=== PATIENT | female | born 1970 | race Caucasian/White ===

== ENCOUNTER 2021-12-09 12:57 | Outpatient (CLI) | payer OTHER, SELFPAY ==
--- NOTE | 2021-12-09 13:40 | CRLHL7_ITS ---
For Patients: As a result of the Century Cures Act, medical imaging exams and procedure reports are released immediately into your electronic medical record. You may view this report before your referring provider. If you have questions, please contact your health care provider. BILATERAL SCREENING MAMMOGRAM WITH COMPUTER-AIDED DETECTION AND TOMOSYNTHESIS TECHNIQUE: CC, MLO and Implant displaced views were obtained. These mammographic images have been obtained using full-field digital technique. These mammographic images were interpreted with the benefit of computer-aided detection. Breast Tomosynthesis was used in this interpretation. COMPARISON FILM: 12/01/20, 08/14/19, 06/06/18. FINDINGS: There are scattered areas of fibroglandular density IMPRESSION: There is no radiographic evidence for malignancy. ASSESSMENT: BI-RADS Category 2: Benign RECOMMENDATION: Routine screening mammogram in 1 year. A lay language report of this examination will be provided to the patient. Nakita Mann M.D. Diagnostic/Breast Radiologist [email or web address] UNIQUE/Dictated by: Nakita Mann MD @ 12/10/2021 8:32:00 AM (Electronically Signed)
== END 2021-12-09 12:58 | disposition home or self-care (01) ==
LOC: MAMMO 12:58
PROVIDERS: PCP Family Medicine; Visit Provider Obstetrics & Gynecology
DX: Z12.31 Encounter for screening mammogram for malignant neoplasm of breast (principal)
CPT/HCPCS: 77063; 77067

== ENCOUNTER 2021-12-20 10:49 | Outpatient (CLI) | payer OTHER, SELFPAY | END 2021-12-20 10:50 | disposition home or self-care (01) | LOC: LKVREF 10:49 | PROVIDERS: PCP Family Medicine; Visit Provider Physician Assistant | DX: Z01.419 Encounter for gynecological examination (general) (routine) without abnormal findings (principal); N95.1 Menopausal and female climacteric states | CPT/HCPCS: 83001 ==

== ENCOUNTER 2022-06-16 14:20 | Outpatient (CLI) | payer OTHER, SELFPAY | END 2022-06-16 14:21 | disposition home or self-care (01) | PROVIDERS: PCP Family Medicine; Visit Provider Family Medicine | DX: E04.1 Nontoxic single thyroid nodule (principal); E78.5 Hyperlipidemia, unspecified; E66.9 Obesity, unspecified | CPT/HCPCS: 80053; 80061; 84443 ==

== ENCOUNTER 2022-08-16 13:47 | Outpatient (CLI) | payer OTHER, SELFPAY ==
--- NOTE | 2022-08-16 14:00 | CRLHL7_ITS ---
For Patients: As a result of the Century Cures Act, medical imaging exams and procedure reports are released immediately into your electronic medical record. You may view this report before your referring provider. If you have questions, please contact your health care provider. INDICATION: Follow-up nodule COMPARISON: 08/16/2021 TECHNIQUE: York scale and color Doppler images were acquired of the thyroid gland. FINDINGS: The thyroid gland demonstrates heterogeneous echogenicity and has a smooth outer contour. The right lobe measures 5.5 x 1.3 x 1.7 cm and the left lobe measures 5.4 x 1.1 x 1.3 cm in size. Near isoechoic nodule within the lower pole of the left thyroid lobe measuring 1.3 x 0.7 x 0.8 cm. The color Doppler images demonstrate normal vascularity. There is no evidence of cervical lymphadenopathy or parathyroid mass. IMPRESSION: 1.3 cm near isoechoic nodule lower pole left thyroid lobe appears morphologically similar in retrospect compared to the prior exam. Continued follow-up in 1 year is suggested. Dictated by Jackson Silva MD @ 08/16/2022 2:35:19 PM (Electronically Signed)
== END 2022-08-16 13:48 | disposition home or self-care (01) ==
LOC: US 13:48
PROVIDERS: PCP Family Medicine; Visit Provider Family Medicine
DX: E04.1 Nontoxic single thyroid nodule (principal)
CPT/HCPCS: 76536

== ENCOUNTER 2022-12-26 13:15 | Outpatient (CLI) | payer OTHER, SELFPAY | END 2022-12-26 13:16 | disposition home or self-care (01) | LOC: NFLDREF 13:15 | PROVIDERS: PCP Family Medicine; Visit Provider Physician Assistant | DX: Z01.419 Encounter for gynecological examination (general) (routine) without abnormal findings (principal); E78.5 Hyperlipidemia, unspecified | CPT/HCPCS: 80061 ==

== ENCOUNTER 2022-12-29 11:03 | Outpatient (CLI) | payer OTHER, SELFPAY | END 2022-12-29 11:04 | disposition home or self-care (01) | LOC: NFLDREF 01-02 03:07 | PROVIDERS: PCP Family Medicine; Referring Provider Family Medicine; Visit Provider Physician Assistant | DX: E78.5 Hyperlipidemia, unspecified (principal) | CPT/HCPCS: 80061 ==

== ENCOUNTER 2023-01-10 12:51 | Outpatient (CLI) | payer OTHER, SELFPAY ==
--- NOTE | 2023-01-10 13:00 | CRLHL7_ITS ---
For Patients: As a result of the Century Cures Act, medical imaging exams and procedure reports are released immediately into your electronic medical record. You may view this report before your referring provider. If you have questions, please contact your health care provider. BILATERAL SCREENING MAMMOGRAM WITH COMPUTER-AIDED DETECTION AND TOMOSYNTHESIS TECHNIQUE: CC and MLO views were obtained. These mammographic images have been obtained using full-field digital technique. These mammographic images were interpreted with the benefit of computer-aided detection. Breast Tomosynthesis was used in this interpretation. COMPARISON FILM: 12/09/21, 12/01/20, 08/14/19. FINDINGS: There are scattered areas of fibroglandular density IMPRESSION: There is no radiographic evidence for malignancy. ASSESSMENT: BI-RADS Category 2: Benign RECOMMENDATION: Routine screening mammogram in 1 year. A lay language report of this examination will be provided to the patient. Jackson Silva M.D. Diagnostic Radiologist [email or web address] UNIQUE/Dictated by: Jackson Silva MD @ 01/11/2023 12:25:00 PM (Electronically Signed)
== END 2023-01-10 12:52 | disposition home or self-care (01) ==
LOC: MAMMO 12:52
PROVIDERS: PCP Family Medicine; Visit Provider Physician Assistant
DX: Z12.31 Encounter for screening mammogram for malignant neoplasm of breast (principal)
CPT/HCPCS: 77063; 77067

== ENCOUNTER 2023-08-21 15:42 | Outpatient (CLI) | payer OTHER, SELFPAY ==
--- NOTE | 2023-08-21 16:00 | CRLHL7_ITS ---
For Patients: As a result of the Cures Act, medical imaging exams and procedure reports are released immediately into your electronic medical record. You may view this report before your referring provider. If you have questions, please contact your health care provider. INDICATION: Nontoxic single thyroid nodule. TECHNIQUE: Thyroid ultrasound with grayscale and color Doppler images. COMPARISON: 08/16/2022 thyroid ultrasound. FINDINGS: Right lobe: 5.6 x 1.3 x 1.8 cm. No nodules. Left lobe: 5.5 x 1.2 x 1.7 cm. Nodule 1: 1.3 cm hypoechoic solid wider than tall TR 4 nodule, unchanged. Isthmus: 3 mm. Thyroid parenchyma mildly heterogeneous. No local adenopathy. IMPRESSION: Stable 1.3 cm TR 4 left lobe nodule. ACR TI-RADS [email or web address] TR1: Benign No FNA TR2: Not Suspicious No FNA TR3: Mildly Suspicious FNA if greater than or equal to 2.5 cm Follow if greater than or equal to 1.5 cm TR4: Moderately Suspicious FNA if greater than or equal to 1.5 cm Follow if greater than or equal to 1 cm TR5: Highly Suspicious FNA if greater than or equal to 1 cm Follow if greater than or equal to 0.5 cm Dictated by Kai Stover MD @ 08/22/2023 3:42:12 PM (Electronically Signed)
== END 2023-08-21 15:43 | disposition home or self-care (01) ==
LOC: US 15:43
PROVIDERS: PCP Family Medicine; Visit Provider Family Medicine
DX: E04.1 Nontoxic single thyroid nodule (principal)
CPT/HCPCS: 76536

== ENCOUNTER 2024-01-15 14:31 | Outpatient (CLI) | payer OTHER, SELFPAY ==
--- NOTE | 2024-01-15 14:40 | CRLHL7_ITS ---
For Patients: As a result of the Cures Act, medical imaging exams and procedure reports are released immediately into your electronic medical record. You may view this report before your referring provider. If you have questions, please contact your health care provider. BILATERAL SCREENING MAMMOGRAM WITH COMPUTER-AIDED DETECTION AND TOMOSYNTHESIS TECHNIQUE: CC and MLO views were obtained. These mammographic images have been obtained using full-field digital technique. These mammographic images were interpreted with the benefit of computer-aided detection. Breast Tomosynthesis was used in this interpretation. COMPARISON FILM: 01/10/23, 12/09/21, 12/01/20. FINDINGS: There are scattered areas of fibroglandular density IMPRESSION: There is no radiographic evidence for malignancy. ASSESSMENT: BI-RADS Category 2: Benign RECOMMENDATION: Routine screening mammogram in 1 year. A lay language report of this examination will be provided to the patient. Jackson Silva M.D. Diagnostic Radiologist [email or web address] SANTI/colin / bM/Dictated by: Jackson Silva MD @ 01/19/2024 10:39:00 AM (Electronically Signed)
== END 2024-01-15 14:32 | disposition home or self-care (01) ==
LOC: MAMMO 14:32
PROVIDERS: PCP Family Medicine; Visit Provider Physician Assistant
DX: Z12.31 Encounter for screening mammogram for malignant neoplasm of breast (principal)
CPT/HCPCS: 77063; 77067

== ENCOUNTER 2024-06-11 08:01 | Outpatient (CLI) | payer OTHER, SELFPAY ==
--- NOTE | 2024-06-11 09:41 | P.ANES_ITS ---
Anesthesia Charges Start Date/Time Anesthesia Start Date: 06/11/24 Anesthesia Start Time: 08:45 Stop Date/Time Anesthesia Stop Date: 06/11/24 Anesthesia Stop Time: 09:32 Coding CPT Codes CPT Codes: ANES LWR INTST NDSC NOS - [id number] ([id number]) P1 - NORMAL HEALTHY PATIENT, QZ - ASSOCIATE PROPERTY MANAGER SVC W/O ARTIFICIAL SNOW MAKING MACHINE OPERATOR BY
--- NOTE | 2024-06-11 09:41 | W.ANESCHARGE ---
Anesthesia Charges Start Date/Time Anesthesia Start Date: 06/11/24 Anesthesia Start Time: 08:45 Stop Date/Time Anesthesia Stop Date: 06/11/24 Anesthesia Stop Time: 09:32 Coding CPT Codes CPT Codes: ANES LWR INTST NDSC NOS - 54190 ([id number]) P1 - NORMAL HEALTHY PATIENT, QZ - ASSURANCE SENIOR MANAGER INSURANCE SVC W/O SYSTEMS MECHANIC BY
== END 2024-06-11 08:02 | disposition home or self-care (01) ==
LOC: OP CLINIC 08:02
PROVIDERS: PCP Family Medicine; Visit Provider Surgery
DX: Z12.11 Encounter for screening for malignant neoplasm of colon (principal); Z86.0100 Personal history of colon polyps, unspecified; D12.3 Benign neoplasm of transverse colon; K57.30 Diverticulosis of large intestine without perforation or abscess without bleeding
CPT/HCPCS: 00811; 00812; 45385; 88305; J2704

== ENCOUNTER 2025-01-21 15:49 | Outpatient (CLI) | payer OTHER, SELFPAY ==
--- NOTE | 2025-01-21 17:00 | CRLHL7_ITS ---
For Patients: As a result of the Century Cures Act, medical imaging exams and procedure reports are released immediately into your electronic medical record. You may view this report before your referring provider. If you have questions, please contact your health care provider. INDICATION: BILATERAL SCREENING MAMMOGRAM W/ IMPLANTS, ASYMPTOMATIC 54 Y/O FEMALE COMPARISON: 01/15/2024, 01/10/2023, 12/09/2021 TECHNIQUE: Digital mammogram in CC and MLO projections including computer-aided detection (CAD) and tomosynthesis. BREAST COMPOSITION: There are scattered areas of fibroglandular density. FINDINGS: No suspicious findings. ASSESSMENT: BI-RADS 2 Benign RECOMMENDATION: Annual screening mammogram. A lay language report of this examination will be provided to the patient. Dictated by: Jackson Silva MD @ 01/22/2025 12:04:44 (Electronically Signed)
== END 2025-01-21 15:50 | disposition home or self-care (01) ==
LOC: MAMMO 15:49
PROVIDERS: PCP Family Medicine; Visit Provider Family Medicine
DX: Z12.31 Encounter for screening mammogram for malignant neoplasm of breast (principal); Z98.82 Breast implant status
CPT/HCPCS: 77063; 77067

== ENCOUNTER 2025-01-24 10:26 | Outpatient (CLI) | payer OTHER, SELFPAY ==
[2025-01-25 21:39] LABS: HPV Source Cervix
[2025-02-06 14:05] LABS: Pap Test Digital Imaging Done
== END 2025-01-24 10:27 | disposition home or self-care (01) ==
PROVIDERS: PCP Family Medicine; Visit Provider Physician Assistant
DX: Z12.4 Encounter for screening for malignant neoplasm of cervix (principal); Z13.9 Encounter for screening, unspecified
CPT/HCPCS: 80053; 80061; 84443; 87624; 87625; 88141; 88142; 88175